=== PATIENT | female | born 1935 | race Hispanic/Latino ===

== ENCOUNTER 2017-05-14 11:52 | Inpatient (IN) | payer MEDICARE, OTHER ==
--- NOTE | 2017-05-14 12:37 | ED PDOC ---
Arrival/HPI - General Chief Complaint: Trauma Time Seen by Provider: 05/14/17 12:15 Historian: Patient - History of Present Illness Narrative History of Present Illness (Text): 05/14/17 12:37 An 81 year old female, whose past medical history includes diabetes, glaucoma, arthritis and spinal stenosis, presents to the emergency department complaining of right sided pain s/p fall about three hours ago. Patient reports unaware how she fell, lives by herself. Denies any dizziness, denies tripping over something. Patient notes she was standing and fell on the tiles on her right side. Reports to taking Ibuprofen an hour ago. Patient denies any b/l knee pain , abdominal pain or any other complaints at this time. Time/Duration: 1-3 hours Symptom Onset: Sudden Symptom Course: Unchanged Activities at Onset: Rest Context: Home Past Medical History - Provider Review Nursing Documentation Reviewed: Yes - Infectious Disease Hx of Infectious Diseases: None - Tetanus Immunization Tetanus Immunization: Unknown - Reproductive Menopause: Yes - Past Medical History Past Medical History: No Previous - Cardiac Hx Cardiac Disorders: Yes Hx Hypertension: Yes - Pulmonary Hx Asthma: Yes - Neurological Hx Neurological Disorder: No - HEENT Hx HEENT Disorder: Yes Hx Cataracts: Yes (right eye, cataract sx on left) Hx Glaucoma: Yes - Renal Hx Renal Disorder: No - Endocrine/Metabolic Hx Diabetes Mellitus Type 2: Yes - Hematological/Oncological Hx Blood Disorders: No - Integumentary Hx Dermatological Disorder: No - Musculoskeletal/Rheumatological Hx Musculoskeletal Disorders: Yes Hx Back Pain: Yes Hx Falls: Yes Hx Unsteady Gait: Yes - Gastrointestinal Hx Gastrointestinal Disorders: No - Genitourinary/Gynecological Hx Genitourinary Disorders: No - Psychiatric Hx Psychophysiologic Disorder: No Hx Anxiety: No Hx Bipolar Disorder: No Hx Depression: No Hx Emotional Abuse: No Hx Hallucinations: No Hx Panic Disorder: No Hx Post Traumatic Stress Disorder: No Hx Psychosis: No Hx Physical Abuse: No Hx Schizophrenia: No Hx Sexual Abuse: No Hx Substance Use: No - Surgical History Hx Appendectomy: Yes Hx Cholecystectomy: Yes - Anesthesia Hx Anesthesia: Yes Hx Anesthesia Reactions: No Hx Malignant Hyperthermia: No - Suicidal Assessment Feels Threatened In Home Enviroment: No Family/Social History - Physician Review Nursing Documentation Reviewed: Yes Family/Social History: No Known Family HX Smoking Status: Never Smoked Hx Alcohol Use: No Hx Substance Use: No Hx Substance Use Treatment: No Allergies/Home Meds Allergies/Adverse Reactions: Allergies erythromycin base Allergy (Verified 05/14/17 12:08) ANAPHYLAXIS nitrofurantoin Allergy (Verified 05/14/17 12:08) ANAPHYLAXIS tetracycline Allergy (Verified 05/14/17 12:08) ANAPHYLAXIS Home Medications: Home Meds Medication Instructions Recorded Confirmed ALPRAZolam [Xanax] 0.25 mg PO BID 07/30/15 07/30/15 Aspirin [Aspirin Chewable] 81 mg PO DAILY 07/30/15 07/30/15 Atenolol [Tenormin] 50 mg PO DAILY 07/30/15 07/30/15 Bimatoprost [Lumigan] 1 drop OU DAILY 07/30/15 07/30/15 Brimonidine Tartrate/Timolol 1 drop OU DAILY 07/30/15 07/30/15 [Combigan Eye Drops] Cetirizine HCl [Wal-Zyr] 1 tab PO DAILY 07/30/15 07/30/15 Lactobacillus Acidophilus 1 cap PO TID 07/30/15 07/30/15 [Acidophilus] Multivit-Min/Iron/Folic/Lutein 1 tab PO DAILY 07/30/15 07/30/15 [Centrum Silver Women Tablet] Naproxen [Naprosyn] 1 tab PO TID 07/30/15 07/30/15 metFORMIN [glucOPHAGE] 1,000 mg PO BID 07/30/15 07/30/15 Review of Systems - Physician Review All systems were reviewed & negative as marked: Yes - Review of Systems Gastrointestinal: absent: Abdominal Pain Musculoskeletal: Other (right sided pain s/p fall, no b/l knee pain) Physical Exam Vital Signs Reviewed: Yes Vital Signs Temp Pulse Resp BP Pulse Ox 05/14/17 15:00 81 18 149/78 98 05/14/17 12:01 98.8 F 82 18 157/71 H 97 Temperature: Afebrile Blood Pressure: Hypertensive Pulse: Regular Respiratory Rate: Normal Appearance: Positive for: Well-Appearing, Non-Toxic, Comfortable Pain Distress: None Mental Status: Positive for: Alert and Oriented X 3 Finger Stick Blood Glucose: 198 - Systems Exam Head: Present: Atraumatic, Normocephalic Pupils: Present: PERRL Extroacular Muscles: Present: EOMI Conjunctiva: Present: Normal Mouth: Present: Moist Mucous Membranes Neck: Present: Normal Range of Motion Respiratory/Chest: Present: Clear to Auscultation, Good Air Exchange. No: Respiratory Distress, Accessory Muscle Use Cardiovascular: Present: Regular Rate and Rhythm, Normal S1, S2. No: Murmurs Abdomen: Present: Normal Bowel Sounds. No: Tenderness, Distention, Peritoneal Signs Back: Present: Normal Inspection Upper Extremity: Present: Tenderness (right sided costal tenderness). No: Cyanosis, Edema Lower Extremity: Present: Normal Inspection. No: Edema Neurological: Present: GCS=15, CN II-XII Intact, Speech Normal Skin: Present: Warm, Dry, Normal Color. No: Rashes Psychiatric: Present: Alert, Oriented x 3, Normal Insight, Normal Concentration Medical Decision Making ED Course and Treatment: 05/14/17 12:34 Impression: An 81 year old female with right sided pain s/p fall. Plan: -- CT head -- CT chest -- EKG -- chest xray -- labs -- Urinalysis -- Tylenol -- Reassess and disposition Prior Visits: Notes and results from previous visits were reviewed. Patient was last seen in the emergency department on 07/30/15 for evaluation of rash and syncopal episodes. Progress Notes: 05/14/17 12:51 EKG: Ordered, reviewed, and independently interpreted the EKG. Rate : 75 BPM Rhythm : NSR Interpretation : 1st degree AV block 05/14/17 14:17 CT HEAD WITHOUT CONTRAST Creator : Tahira Kennedy MD FINDINGS: HEMORRHAGE: No intracranial hemorrhage. BRAIN: No mass effect or edema. Moderate atrophy and moderate chronic microvascular white matter ischemic disease are again noted. VENTRICLES: Unremarkable. No hydrocephalus. CALVARIUM: Unremarkable. PARANASAL SINUSES: Unremarkable as visualized. No significant inflammatory changes. MASTOID AIR CELLS: Unremarkable as visualized. No inflammatory changes. IMPRESSION: No evidence of acute intracranial hemorrhage intracranial collection mass effect or midline shift. Moderate atrophy and moderate chronic microvascular white matter ischemic disease are again noted. Dilated ventricles out of proportion of mildly dilated sulci. Correlate clinically for normal pressure hydrocephalus. 05/14/17 14:34 CT Chest without contrast Creator : Tahira Kennedy MD IMPRESSION: Two nondisplaced fractures at the posterior aspect of the right 11th rib. Small right pleural effusion. Airspace opacity at the right lung base likely atelectasis. Mild cardiomegaly. 05/14/17 15:02 Chest xray- Creator : Kg Coyle MD IMPRESSION: No active disease. 05/14/17 15:02 Radiographs of the pelvis Creator : Kg Coyle MD IMPRESSION: Unremarkable radiographs of the pelvis. 05/14/17 22:15 pt orriginally reports pmd is "dr kimble". ltater states it was dr duff. updated dr diaz that pt is to be admitted to dr tobar service. - Lab Interpretations Lab Results: 05/14/17 13:20 05/14/17 13:20 Lab Results 05/14/17 13:20: Sodium 138, Potassium 5.0, Chloride 99, Carbon Dioxide 25, Anion Gap 20, BUN 22 H, Creatinine 0.8, Est GFR ( Amer) > 60, Est GFR ( Non-Af Amer) > 60, Random Glucose 172 H, Calcium 10.2, Magnesium 1.7, Total Bilirubin 0.4, AST 25, ALT 29, Alkaline Phosphatase 54, Lactate Dehydrogenase 405, Total Creatine Kinase 83, Troponin I < 0.01, Total Protein 7.6, Albumin 4.3 , Globulin 3.3, Albumin/Globulin Ratio 1.3 05/14/17 13:20: PT 12.0, INR 1.05, APTT 27.4 05/14/17 13:20: WBC 11.2 H, RBC 4.65, Hgb 13.2, Hct 40.4, MCV 86.9, MCH 28.4, MCHC 32.7, RDW 14.6 H, Plt Count 208, MPV 10.9, Gran % 82.7 H, Lymph % (Auto) 10.7 L, [place] % (Auto) 5.9, Eos % (Auto) 0.6 L, Baso % (Auto) 0.1, Gran # 9.25 H , Lymph # (Auto) 1.2, [place] # (Auto) 0.7 H, Eos # (Auto) 0.1, Baso # (Auto) 0.01 I have reviewed the lab results: Yes - RAD Interpretation Radiology Orders: 05/14/17 12:20 CHEST W/O CONTRAST [CT] Stat HEAD W/O CONTRAST [CT] Stat CHEST PORTABLE [RAD] Stat 05/14/17 12:21 PELVIS ONE VIEW [RAD] Stat - EKG Interpretation Interpreted by ED Physician: Yes Type: 12 lead EKG - Medication Orders Current Medication Orders: Alprazolam (Xanax) 0.25 mg PO BID ANDREAS PRN Reason: Protocol Stop: 05/21/17 18:01 Last Admin: 05/14/17 18:23 Dose: 0.25 mg Behavioural Document 05/14/17 18:23 JFR (Rec: 05/14/17 18:23 R [facility] [id number]) Maintenance Maintenance Dose Yes Re-Assess: Reassess Psych Meds Document 05/14/17 19:23 FDE (Rec: 05/14/17 19:55 FDE [id number]) Reassess Psych Med Effective Aspirin (Aspirin Chewable) 81 mg PO DAILY ANDREAS Atenolol (Tenormin) 50 mg PO DAILY ANDREAS Sodium Chloride (Sodium Chloride 0.45%) 1,000 mls @ 40 mls/hr IV .Q24H [facility] Last Admin: 05/14/17 18:22 Dose: 40 mls/hr eMAR Start Stop Document 05/14/17 18:22 JFR (Rec: 05/14/17 18:22 [id number]) Intravenous Solution Start Date 05/14/17 Start Time 18:22 Insulin Human Regular (Humulin R Med) 0 units SC ACHS [facility] PRN Reason: Protocol Last Admin: 05/14/17 21:30 Dose: Not Given Non-Admin Reason: Blood Sugar Parameter [facility] Blood Glucose Document 05/14/17 21:30 E (Rec: 05/14/17 21:30 FDE [facility] [place] Blood Glucose Finger Stick Blood Glucose (70-120) 83 Ketorolac Tromethamine (Toradol) 15 mg IVP Q6H PRN PRN Reason: PAIN MODERATE Last Admin: 05/14/17 18:22 Dose: 15 mg MAR Pain Assessment Document 05/14/17 18:22 R (Rec: 05/14/17 18:22 [id number]) Pain Reassessment Is this a pain reassessment? No Pain Scale Used Pain Scale Used Numeric Location Left, Right or Bilateral Right Pain Location Body Site Generalized Description Intensity of Pain at present 8 IVP Administration Document 05/14/17 18:22 JFR (Rec: 05/14/17 18:22 [id number]) Charges for Administration # of IVP Administrations 1 Re-Assess: [facility] Pain Assessment Document 05/14/17 19:22 E (Rec: 05/14/17 19:39 [id number] Pain Reassessment Is this a pain reassessment? Yes Sleep Is patient sleeping during reassessment? No Presence of Pain Presence of Pain Yes Latanoprost (Xalatan Opht) 0 ml OU HS [facility] Last Admin: 05/14/17 21:19 Dose: 2.5 ml Metformin HCl (Glucophage) 1,000 mg PO BID [facility] Last Admin: 05/14/17 18:23 Dose: 1,000 mg Naproxen (Anaprox) 275 mg PO BID [facility] Last Admin: 05/14/17 18:23 Dose: 275 mg [facility] Pain Assessment Document 05/14/17 18:23 JFR (Rec: 05/14/17 18:23 R [facility] [id number]) Pain Reassessment Is this a pain reassessment? No Presence of Pain Presence of Pain Yes Pain Scale Used Pain Scale Used Numeric Location Left, Right or Bilateral Right Pain Location Body Site Generalized Description Intensity of Pain at present 8 Re-Assess: [facility] Pain Assessment Document 05/14/17 19:23 FDE (Rec: 05/14/17 19:39 FDE [id number]) Pain Reassessment Is this a pain reassessment? Yes Sleep Is patient sleeping during reassessment? No Presence of Pain Presence of Pain Yes Brimonidine Tartrate /Timolol [Combigan 0 .2%-0.5% Eye Drops] 1 drop OU DAILY [facility] Discontinued Medications Acetaminophen (Tylenol 325mg Tab) 975 mg PO STAT STA Stop: 05/14/17 12:22 Last Admin: 05/14/17 15:00 Dose: Not Given Non-Admin Reason: Patient Refused - Scribe Statement The provider has reviewed the documentation as recorded by the Morena Lion Provider Scribe Attestation: All medical record entries made by the Scribe were at my direction and personally dictated by me. I have reviewed the chart and agree that the record accurately reflects my personal performance of the history, physical exam, medical decision making, and the department course for this patient. I have also personally directed, reviewed, and agree with the discharge instructions and disposition. Disposition/Present on Arrival - Present on Arrival Any Indicators Present on Arrival: No History of DVT/PE: No History of Uncontrolled Diabetes: No Urinary Catheter: No History of Decub. Ulcer: No History Surgical Site Infection Following: None - Disposition Have Diagnosis and Disposition been Completed?: Yes Diagnosis: Rib fracture, Multiple falls Disposition: HOSPITALIZED Disposition Time: 01:00 Condition: STABLE
[2017-05-14 13:37] LABS: BASO # 0.01 K/mm3 (0.0-2.0); BASO % 0.1 % (0.0-3.0); EOS # 0.1 (0.0-0.7); EOS % 0.6 % (1.5-5.0); GRAN # 9.25 (1.4-6.5); GRAN % 82.7 % (50.0-68.0); HEMOGLOBIN 13.2 g/dL (12.0-16.0); LYMPH # 1.2 (1.2-3.4); LYMPH % 10.7 % (22.0-35.0); MEAN CELL VOLUME 86.9 fl (80.0-105.0); MEAN CORPUSCULAR HEMOGLOBIN 28.4 pg (25.0-35.0); MEAN CORPUSCULAR HGB CONC 32.7 g/dl (31.0-37.0); MEAN PLATELET VOLUME 10.9 fl (7.0-11.0); MONO # 0.7 (0.1-0.6); MONO % 5.9 % (1.0-6.0); RBC 4.65 10^6/uL (3.5-6.1); RED CELL DISTRIBUTION WIDTH 14.6 % (11.5-14.5); WHITE BLOOD COUNT 11.2 10^3/ul (4.5-11.0)
[2017-05-14 13:46] LABS: ALB/GLOB RATIO 1.3 (1.1-1.8); ALBUMIN 4.3 g/dL (3.0-4.8); ALT/SGPT 29 U/L (7-56); AST/SGOT 25 U/L (14-36); BLOOD UREA NITROGEN 22 mg/dL (7-21); CALCIUM 10.2 mg/dL (8.4-10.5); GFR AFRICAN-AMERICAN > 60; GFR NON-AFRICAN AMERICAN > 60; MAGNESIUM 1.7 mg/dL (1.7-2.2)
[2017-05-14 13:57] LABS: TROPONIN I < 0.01 ng/mL
[2017-05-14 13:59] LABS: INR 1.05 (0.93-1.08); PARTIAL THROMBOPLASTIN TIME 27.4 Seconds (25.1-36.5)
--- NOTE | 2017-05-14 14:16 | CT ---
PROCEDURE: CT HEAD WITHOUT CONTRAST. HISTORY: fall COMPARISON: Comparison is made with the previous study dated 07/30/2015 TECHNIQUE: Axial computed tomography images were obtained through the head/brain without intravenous contrast. Radiation dose: Total exam DLP = 977.56 mGy-cm. This CT exam was performed using one or more of the following dose reduction techniques: Automated exposure control, adjustment of the mA and/or kV according to patient size, and/or use of iterative reconstruction technique. FINDINGS: HEMORRHAGE: No intracranial hemorrhage. BRAIN: No mass effect or edema. Moderate atrophy and moderate chronic microvascular white matter ischemic disease are again noted. VENTRICLES: Unremarkable. No hydrocephalus. CALVARIUM: Unremarkable. PARANASAL SINUSES: Unremarkable as visualized. No significant inflammatory changes. MASTOID AIR CELLS: Unremarkable as visualized. No inflammatory changes. OTHER FINDINGS: None. IMPRESSION: No evidence of acute intracranial hemorrhage intracranial collection mass effect or midline shift. Moderate atrophy and moderate chronic microvascular white matter ischemic disease are again noted. Dilated ventricles out of proportion of mildly dilated sulci. Correlate clinically for normal pressure hydrocephalus.
--- NOTE | 2017-05-14 14:32 | CT ---
PROCEDURE: CT Chest without contrast HISTORY: fall right sided rib pain COMPARISON: None. TECHNIQUE: Contiguous axial images were obtained through the chest without intravenous contrast enhancement. Sagittal and coronal reconstructions were performed. Radiation dose (DLP): 249.31 mGy-cm. This CT exam was performed using one or more of the following dose reduction techniques: Automated exposure control, adjustment of the mA and/or kV according to patient size, and/or use of iterative reconstruction technique. FINDINGS: LUNGS: Small opacity at the right lung base likely atelectasis. MEDIASTINUM: Unremarkable thoracic aorta. No aneurysm. The heart is mildly enlarged. Main pulmonary artery unremarkable. No vascular congestion. No lymphadenopathy. PLEURA: There is small right pleural effusion. BONES: There are nondisplaced fracture at the posterior aspect of the right 11th rib. UPPER ABDOMEN: Grossly unremarkable. OTHER FINDINGS: None. IMPRESSION: Two nondisplaced fractures at the posterior aspect of the right 11th rib. Small right pleural effusion. Airspace opacity at the right lung base likely atelectasis. Mild cardiomegaly.
--- NOTE | 2017-05-14 14:59 | RAD ---
HISTORY: fall COMPARISON: 07/30/2015 FINDINGS: LUNGS: No active pulmonary disease. PLEURA: No significant pleural effusion identified, no pneumothorax apparent. CARDIOVASCULAR: Normal. OSSEOUS STRUCTURES: No significant abnormalities. VISUALIZED UPPER ABDOMEN: Normal. OTHER FINDINGS: None. IMPRESSION: No active disease.
--- NOTE | 2017-05-14 15:00 | RAD ---
PROCEDURE: Radiographs of the pelvis. HISTORY: fall COMPARISON: None. FINDINGS: BONES: Pelvic Bones: Unremarkable. Hips: Grossly unremarkable. JOINTS: Sacroiliac Joints: Unremarkable. Pubic Symphysis: Unremarkable. OTHER FINDINGS: None. IMPRESSION: Unremarkable radiographs of the pelvis.
--- NOTE | 2017-05-14 16:34 | CARD ---
APPROVED REPORT EKG Measurement Heart [id number] <Conclusion> Poor data quality, interpretation may be adversely affected Sinus rhythm with 1st degree AV block Low voltage QRS Inferior infarct, age undetermined Possible Anterolateral infarct, age undetermined Abnormal ECG
--- NOTE | 2017-05-14 18:00 | CON ---
DATE: 05/14/2017 NEUROLOGY CONSULTATION CHIEF COMPLAINT: Near syncope. HISTORY OF PRESENT ILLNESS: This is an 81-year-old woman with history of type 2 diabetes mellitus, uses a walker at baseline for gait, glaucoma, arthritis, spinal stenosis, who presented to the hospital because today when she was getting up from her bed, she did not feel lightheaded but had fallen, unaware of how she fell, resulted in some left rib fractures and currently has some mild pain. She is diabetic. She thinks it could have been that her blood sugar was on the lower side in the morning. She denies any lightheadedness or any spinning sensation of the room. No change in sense, vision, taste, or smell at this time from her baseline. CAT scan of the head showed no acute intracranial abnormalities. PAST MEDICAL HISTORY: As above in terms of diabetes, glaucoma, arthritis, chronic back pain, and spinal stenosis. FAMILY HISTORY: Noncontributory. SOCIAL HISTORY: No illicit drug use, smoking, or EtOH abuse. ALLERGIES: ERYTHROMYCIN, TETRACYCLINE. REVIEW OF SYSTEMS: Fourteen-point review of systems is negative except per the HPI. PHYSICAL EXAMINATION: VITAL SIGNS: Temperature of 98, pulse rate of 82, blood pressure 157/ , respiratory rate of 18, oxygen saturation 97% by room air. GENERAL:. Patient is sitting up in bed, in no acute distress. HEENT: Head is atraumatic, normocephalic. PERRLA. Extraocular muscles intact. NECK: Supple. No JVD, no adenopathy noted. LUNGS: Clear to auscultation. No adventitious sounds. HEART: S1 and S2. Normal rate and rhythm. No murmurs, rubs, or gallops. ABDOMEN: Soft, nontender, nondistended. Bowel sounds are present. EXTREMITIES: No clubbing, no cyanosis. Peripheral pulses 2+ felt bilaterally. NEUROLOGIC: Patient is alert and oriented to person, place, month, and year. Speech is fluent without any errors. Cranial nerves II through XII intact. Motor: Slightly increased tone throughout. Moves all extremities equally. No pronator drift seen. Sensory: Decreased light touch and pinprick up to the calves bilaterally. Decreased vibration of the toes. DTRs are 2+ throughout and absent at both knees and ankles. Coordination: [id number] intact. No tremor seen. Gait is deferred for now. LABORATORY DATA: Sodium is 138, potassium 5, chloride of 99, carbon dioxide of 25, BUN of 22, creatinine of . ASSESSMENT AND PLAN: This is an 81-year-old woman with history of type 2 diabetes mellitus, chronic back pain, spinal stenosis, glaucoma, who had a near syncope and a fall out of bed resulted in some fractures on the eleventh rib, currently in some mild pain, but no breathing, but otherwise no focal weakness or neurological deficits. At this time, her near syncope could be due to possibly transient hypoglycemia versus deconditioned state and falling out of bed. At this time, I would recommend: 1. Carotid Doppler. 2. Monitor blood sugars and correct accordingly. Keep blood sugars between 140 to 180. 3. Holter monitoring. 4. Continue with naproxen for pain management as needed and continue current present medical management. Thank you for this consult. Aristides Colilns MD
[2017-05-14] MEDS: Sodium Chloride 0.45% 1,000 ML IV SCH (18:22)
[2017-05-14] MEDS: Naproxen 275 mg Tab PO SCH (18:23)
--- NOTE | 2017-05-14 18:40 | US ---
PROCEDURE: Bilateral carotid artery duplex ultrasound HISTORY: Carotid stenosis PHYSICIAN(S): Duarte Cornejo MD. TECHNIQUE: Duplex sonography and color-flow Doppler were used to evaluate the carotid bifurcations and limited segments of the vertebral arteries bilaterally. FINDINGS: There is moderate smooth heterogeneous plaque noted at the carotid bifurcations bilaterally, greater on the left than the right. The peak systolic velocity in the proximal right internal carotid artery is 78 cm/sec. This corresponds to a 20 to 39% proximal right ICA stenosis. Normal systolic velocities are noted in the proximal right external carotid artery. There is antegrade flow in the right vertebral artery. The origin the left ICA is somewhat obscured by shadowing plaque. The peak systolic velocity in the proximal left internal carotid artery is 205 cm/sec. This corresponds to a 60-79 percent proximal left ICA stenosis. Normal systolic velocities are noted in the proximal left external carotid artery. The left vertebral artery was not adequately visualized. IMPRESSION: 1. 60-79 percent proximal left ICA stenosis 2. 20-39 percent proximal right ICA stenosis 3. Grade flow in the right vertebral artery. Left vertebral artery was not visualized
[2017-05-14] MEDS: Latanoprost 2.5 ml Opht Soln OU SCH (21:19)
[2017-05-14] MEDS: Insulin Reg-MEDIUM-Coverage SC SCH (21:30)
[2017-05-14 23:36] VITALS: BMI 26.6
[2017-05-14] MEDS ORDERED: Influenza Vaccine 60 mcg/0.5 mL SYR (4YR UP) IM ONE (23:37)
[2017-05-14] MEDS ORDERED: Pneumococcal 23-Valent Vaccine IM ONE (23:37)
[2017-05-15 07:12] LABS: HEMOGLOBIN 11.9 g/dL (12.0-16.0); MEAN CELL VOLUME 86.6 fl (80.0-105.0); MEAN CORPUSCULAR HEMOGLOBIN 27.5 pg (25.0-35.0); MEAN CORPUSCULAR HGB CONC 31.7 g/dl (31.0-37.0); MEAN PLATELET VOLUME 10.8 fl (7.0-11.0); RBC 4.33 10^6/uL (3.5-6.1); RED CELL DISTRIBUTION WIDTH 14.7 % (11.5-14.5); WHITE BLOOD COUNT 9.5 10^3/ul (4.5-11.0)
[2017-05-15 07:50] LABS: ALB/GLOB RATIO 1.2 (1.1-1.8); ALBUMIN 3.9 g/dL (3.0-4.8); ALT/SGPT 28 U/L (7-56); AST/SGOT 24 U/L (14-36); BLOOD UREA NITROGEN 23 mg/dL (7-21); CALCIUM 9.5 mg/dL (8.4-10.5); GFR AFRICAN-AMERICAN > 60; GFR NON-AFRICAN AMERICAN 60
--- NOTE | 2017-05-15 08:04 | HP ---
HISTORY OF PRESENT ILLNESS: I spoken to Karla this morning. She has told me she has fallen. I referred her to the Emergency Room today at [facility]. We have called the ambulance. I have been doing house calls on her for over a year now because it was very hard for her to get out of the house. It turns out that she has 2 fractures of the ribs and she was syncopal and dizzy. She is in a lot of pain. She is an 81-year-old female with a history of diabetes, glaucoma, arthritis, spinal stenosis, walks with a rollator at home, barely can walk 3 or 4 steps without having to stop. She has fallen at home prior 3 hours and she fell on her right side. She felt like she possibly could have lost consciousness, she tipped over, she felt it was her walker, the rollator, which she was using or tiles, and she is in pain on her right side, screaming on the phone to me. PAST MEDICAL HISTORY: Hypertension, asthma, right eye cataract, glaucoma, diabetes, back pain, falls, gait dysfunction besides physical therapy at the house, PAST SURGICAL HISTORY: Appendectomy, cholecystectomy. FAMILY HISTORY: No known family history. SOCIAL HISTORY: No smoker. No drinker. No drugs. ALLERGIES: SHE IS ALLERGIC TO ERYTHROMYCIN, NITROFURANTOIN, AND TETRACYCLINE. MEDICATIONS: She takes Xanax, aspirin, atenolol, Lumigan, timolol, Lovir, acidophilus, multivitamin, Naprosyn, and Glucophage. REVIEW OF SYSTEMS: No headache, no acute vision or hearing changes. No sore throat. No neck pain. No chest pain. No shortness of breath. No palpitations. No coughing. She has right-sided rib pain which seems severe. No abdominal pain. No nausea, vomiting, constipation or diarrhea. Her legs and the knees have arthritis pain, but nothing else. She could move all extremities. PHYSICAL EXAMINATION: GENERAL: She is well appearing at this time. Resting comfortably in bed. She has been medicated. VITAL SIGNS: She has 98.8 temperature, 82 pulse, 18 respiratory rate, 157/71 blood pressure, 97% O2 sat on room air. HEENT: Head is atraumatic, normocephalic. Extraocular muscles are intact. NECK: Supple. Thyroid midline. No palpable lymphadenopathy. HEART: Regular rate. Normal S1, S2. LUNGS: Decreased breath sounds, but clear to auscultation. No wheezes, no rhonchi, no rales. ABDOMEN: Soft, nontender, positive bowel sounds. No guarding. No rebound. No CVA tenderness. CHEST: The right side of the ribs are very tender with costal tenderness. NEUROLOGIC: GCS is 15. Cranial nerves II through XII grossly intact. Alert and oriented x3. SKIN: Warm and dry. LABORATORY DATA: She had a CAT scan of the head which is okay. CT of the chest showed right-sided fractured ribs. Chest x-ray was clear. She had a first degree AV block on the EKG with normal sinus rhythm. She has 2 nondisplaced fractures at the posterior aspect of the right 11th rib. Small pleural effusion or air space opacity at the right lung base. We will get Pulmonary to take a look at that, and Neurology to look at her syncope and her fall. She has 11.2 white count, 13.2 hemoglobin, 40.4 hematocrit, with a 208 platelets. Sodium 138, potassium is 5, BUN is 22, creatinine is 0.8. GFR is greater than 60. Random sugar is 172. Magnesium 1.7, calcium is 10.2, total bili is 0.4, AST is 25, ALT is 29, alk phos is 74. Lactate dehydrogenase is 405. Total creatinine kinase is 83, troponin I is less than 0.01, total protein 7.6, albumin is 4.3, INR is 1.05. IMPRESSION AND PLAN: I am going to call in Neurology and Pulmonology. She will need to have physical therapy. She might need subacute rehab. She will be on IV fluids, inulin coverage, and Toradol for pain. She is here for fall with fracture of 11th rib on the right, syncope. We will continue with aggressive treatment and care for Karla. She might need subacute rehab. We will see what Physical Therapy has to say. Paresh Franco DO
[2017-05-15] MEDS: Insulin Reg-MEDIUM-Coverage SC SCH ×4 (08:58→21:50)
[2017-05-15] MEDS: Naproxen 275 mg Tab PO SCH ×2 (09:43→17:03)
[2017-05-15] MEDS ORDERED: Non Formulary Medication (Bimatoprost [Lumigan] 1 DROP) OU SCH (10:00)
--- NOTE | 2017-05-15 10:48 | PN ---
DATE: SUBJECTIVE: I saw Karla resting in bed in the setting of lots of right-sided pain from the fractured ribs. She is on pain meds, which helps. She is going to have to go to subacute rehab or TCU. She is very uncomfortable and is scared to walk. She is on IV fluids, Anaprox, aspirin, Combigan, metformin, insulin coverage, Tenormin, Toradol, Tylenol, Xalatan and Xanax. PHYSICAL EXAMINATION: VITAL SIGNS: 98 temp, 76 pulse, 126/56 blood pressure, 20 respiratory rate, 96% O2 sat on room air. HEENT: Head is atraumatic, normocephalic. Throat is moist. NECK: Supple. HEART: Regular rate. LUNGS: Decreased breath sounds, but clear. Right-sided ribs are very tender. Only when she is comfortable, she is lying completely flat, not moving. ABDOMEN: Soft. EXTREMITIES: No edema. LABORATORY DATA: She has a 9.5 white count, better; 11.9 hemoglobin; 37.5 hematocrit with 195 platelets. She has a 139 sodium, potassium 3.8, BUN is 23, creatinine 0.9, GFR is greater than 60, sugar is 122, calcium is 9.5, total bili is 0.5, AST is 24, ALT is 28, alk phos 57, total protein is 7. ASSESSMENT AND PLAN: She is being seen by Neurology. She had carotid Doppler showing 60-79% internal carotid artery and 20-39% internal carotid artery stenosis. She is being seen by Dr. Collins. We will follow up with him with his evaluation of her and physical therapy, pain meds, out of bed to chair, bedside commode and hopefully she will continue to heal these fractured ribs from a fall and I do believe she gets subacute rehab or Transitional Care Unit before she would go home, probably to subacute rehab. We will check her labs tomorrow. Encouraged her to eat and take her medicines. We will get a bedside commode to make it easier for her. Paresh Franco DO
--- NOTE | 2017-05-15 15:16 | CON ---
DATE: 05/15/2017 PULMONARY CONSULTATION REFERRING PHYSICIAN: Dr. Paresh Franco. REASON FOR CONSULTANTION: Right basilar atelectasis. History is obtained via extensive discussion with the night nurse. I have also spoken with the patient at length, and reviewed the chart at length. The patient is an 81-year-old female, with past medical history significant for diabetes mellitus, questionable chronic obstructive pulmonary disease (positive former smoker for many years), glaucoma, arthritis, spinal stenosis, who presents to [facility] with increasing right-sided rib pain, status post fall at home. I did discuss the case with the patient at length. The patient is unaware of how she fell, but denies passing out. She also denies dizziness or tripping over something. She was thus admitted for additional evaluation. The patient denies shortness of breath at rest or dyspnea on exertion. She does have a chronic minimal cough with occasional sputum production. As above, the patient does complain of right-sided rib pain. She has no chest pain. There is no history of coughing up of blood. The right side does get more painful with deep respirations or any movement. There is no history of temperatures, chills, or infectious exposure. There is no history of night sweats, weight loss, or appetite change prior to the above events. No history of leg or calf pains. No history of syncope or diaphoresis. No history of recent travel. REVIEW OF SYSTEMS: No history of nausea, vomiting, or diarrhea. No acute urinary symptoms. Rest of the review of systems is negative. ALLERGIES: ERYTHROMYCIN, NITROFURANTOIN, AND TETRACYCLINE. SOCIAL HISTORY: Positive for former tobacco usage for many years, no alcohol. FAMILY HISTORY: No inheritable diseases. HOME MEDICATIONS: Include Glucophage, Naprosyn, acidophilus, Lumigan, Tenormin, aspirin, and Xanax. PHYSICAL EXAMINATION: GENERAL: The patient appears comfortable at rest. She is not short of breath. VITAL SIGNS: Temperature is 98.0, pulse 76, respirations 18/20, blood pressure 126/56. Oxygen saturation on room air is 96%. HEENT: Normocephalic, atraumatic. No JVD. CARDIOVASCULAR: Systolic ejection murmur at the lower left sternal border. No S3 gallop. LUNGS: Decreased breath sounds at the bases. No rhonchi. No wheezing. EXTREMITIES: No clubbing, cyanosis, or edema. Calves are nontender to palpation. GI: Abdomen is soft, nontender, and nondistended. Bowel sounds are positive. SKIN: No acute rash. NEUROLOGIC: Limited at the present time. PERTINENT LABORATORY DATA: CAT scan of the chest was done yesterday and reviewed. There is a fracture at the posterior aspect of the right 11th rib. There is also a very small right pleural effusion and adjacent airspace opacity (most consistent with atelectasis). Complete metabolic profile: BUN 22. Glucose 172. Rest of the metabolic profile is within normal limits. CBC: White count 11.2, hemoglobin 13.2, hematocrit 40.4, and platelets of 208,000. IMPRESSION: 1. Status post fall at home. 2. Fracture - right 11th rib. 3. Minimal atelectasis - right base. 4. Small right pleural effusion. 5. Probable chronic obstructive pulmonary disease. PLAN: Again, I did discuss the case with the night nurse at length. I have also discussed the case with the patient at length, and reviewed the chart at length. The patient presents to [facility] after falling at home. Again, she does not remember the events surrounding the fall, but denies passing out or dizziness. She was thus admitted for additional evaluation. I did review the CAT scan of the chest. As above, there is a fracture of the posterior aspect of the right 11th rib. There is also a very small right pleural effusion, and minimal airspace disease at the right base - most likely representing atelectasis. At this point in time, there is no bronchospasm on physical exam. In addition, the oxygen saturation on room air is 96%. I will start the patient on incentive spirometer and hopefully have her out of bed this morning. I would continue with the neurologic evaluation and workup. Input by Dr. Collins is noted. The patient does state to feeling better and is clinically improved this morning. Additional pulmonary intervention would based on the clinical status of the patient. I will discuss the above with Dr. Franco later this morning. Thank you very much for this pulmonary consultation. Juan Luis Carr MD [facility] # [id number] MTDD
--- NOTE | 2017-05-15 15:54 | CP.PCM.PN ---
Subjective - Date & Time of Evaluation Date of Evaluation: 05/15/17 Time of Evaluation: 15:00 - Subjective Subjective: DATE: 05/15/2017 NEUROLOGY FOLLOW UP. CHIEF COMPLAINT: Near syncope. SUBJECTIVE: She is in mild pain, but is not dizzy. She would benefit from TARAS. PAST MEDICAL HISTORY: As above in terms of diabetes, glaucoma, arthritis, chronic back pain, and spinal stenosis. FAMILY HISTORY: Noncontributory. SOCIAL HISTORY: No illicit drug use, smoking, or EtOH abuse. ALLERGIES: ERYTHROMYCIN, TETRACYCLINE. REVIEW OF SYSTEMS: Fourteen-point review of systems is negative except per the HPI. PHYSICAL EXAMINATION: VITAL SIGNS: Reviewed. GENERAL:. Patient is sitting up in bed, in no acute distress. HEENT: Head is atraumatic, normocephalic. PERRLA. Extraocular muscles intact. NECK: Supple. No JVD, no adenopathy noted. LUNGS: Clear to auscultation. No adventitious sounds. HEART: S1 and S2. Normal rate and rhythm. No murmurs, rubs, or gallops. ABDOMEN: Soft, nontender, nondistended. Bowel sounds are present. EXTREMITIES: No clubbing, no cyanosis. Peripheral pulses 2+ felt bilaterally. NEUROLOGIC: Patient is alert and oriented to person, place, month, and year. Speech is fluent without any errors. Cranial nerves II through XII intact. Motor: Slightly increased tone throughout. Moves all extremities equally. No pronator drift seen. Sensory: Decreased light touch and pinprick up to the calves bilaterally. Decreased vibration of the toes. DTRs are 2+ throughout and absent at both knees and ankles. Coordination: Tuxmuw-sq-sajd intact. No tremor seen. Gait is deferred for now. LABORATORY DATA: Reviewed. ASSESSMENT AND PLAN: This is an 81-year-old woman with history of type 2 diabetes mellitus, chronic back pain, spinal stenosis, glaucoma, who had a near syncope and a fall out of bed resulted in some fractures on the eleventh rib, currently in some mild pain, but no difficulty in breathing and otherwise no focal weakness or neurological deficits. At this time, her near syncope could be due to possibly transient hypoglycemia versus deconditioned state and falling out of bed. Carotid Doppler showed left ICA stenosis of 60-79% and 20-39% on the right. At this time, I would recommend: 1. ASA 81 mg and fish oil since can not tolerate statins for carotid disease. 2. Monitor blood sugars and correct accordingly. Keep blood sugars between 140 to 180. 3. Continue with naproxen for pain management as needed 4. TARAS/ PT/OT Thank you Aristides Collins MD Objective - Vital Signs/Intake and Output Vital Signs (last 24 hours): Temp Pulse Resp BP Pulse Ox 98.6 F 71 18 128/66 96 05/15/17 12:00 05/15/17 14:00 05/15/17 12:00 05/15/17 12:00 05/15/17 05:58 Intake and Output: 05/15/17 05/15/17 06:59 18:59 Intake Total 1140 240 Balance 1140 240 - Medications Medications: Current Medications Alprazolam (Xanax) 0.25 mg PO BID [facility] PRN Reason: Protocol Stop: 05/21/17 18:01 Last Admin: 05/15/17 09:42 Dose: 0.25 mg Aspirin (Aspirin Chewable) 81 mg PO DAILY [facility] Last Admin: 05/15/17 09:44 Dose: 81 mg Atenolol (Tenormin) 50 mg PO DAILY [facility] Last Admin: 05/15/17 09:43 Dose: 50 mg Sodium Chloride (Sodium Chloride 0.45%) 1,000 mls @ 40 mls/hr IV .Q24H [facility] Last Admin: 05/14/17 18:22 Dose: 40 mls/hr Insulin Human Regular (Humulin R Med) 0 units SC ACHS [facility] PRN Reason: Protocol Last Admin: 05/15/17 08:58 Dose: Not Given Ketorolac Tromethamine (Toradol) 15 mg IVP Q6H PRN PRN Reason: PAIN MODERATE Last Admin: 05/15/17 04:03 Dose: 15 mg Latanoprost (Xalatan Opht) 0 ml OU HS [facility] Last Admin: 05/14/17 21:19 Dose: 2.5 ml Metformin HCl (Glucophage) 1,000 mg PO BID [facility] Last Admin: 05/15/17 09:44 Dose: 1,000 mg Naproxen (Anaprox) 275 mg PO BID [facility] Last Admin: 05/15/17 09:43 Dose: 275 mg Brimonidine Tartrate /Timolol [Combigan 0 .2%-0.5% Eye Drops] 1 drop OU DAILY [facility] Last Admin: 05/15/17 09:46 Dose: Not Given - Labs Labs: 05/15/17 06:45 05/15/17 07:00 PT 12.0 SECONDS (9.4-12.5) 05/14/17 13:20 INR 1.05 (0.93-1.08) 05/14/17 13:20 APTT 27.4 Seconds (25.1-36.5) 05/14/17 13:20
[2017-05-15] MEDS: Sodium Chloride 0.45% 1,000 ML IV SCH (18:39)
[2017-05-15] MEDS: Latanoprost 2.5 ml Opht Soln OU SCH (21:14)
[2017-05-16 07:15] LABS: MEAN CELL VOLUME 86.2 fl (80.0-105.0); MEAN CORPUSCULAR HEMOGLOBIN 28.2 pg (25.0-35.0); MEAN CORPUSCULAR HGB CONC 32.7 g/dl (31.0-37.0); MEAN PLATELET VOLUME 10.5 fl (7.0-11.0); RBC 4.26 10^6/uL (3.5-6.1); RED CELL DISTRIBUTION WIDTH 14.6 % (11.5-14.5); WHITE BLOOD COUNT 8.2 10^3/ul (4.5-11.0)
[2017-05-16 07:16] LABS: ALB/GLOB RATIO 1.2 (1.1-1.8); ALBUMIN 3.4 g/dL (3.0-4.8); ALT/SGPT 28 U/L (7-56); AST/SGOT 23 U/L (14-36); BLOOD UREA NITROGEN 22 mg/dL (7-21); CALCIUM 9.2 mg/dL (8.4-10.5); GFR AFRICAN-AMERICAN > 60; GFR NON-AFRICAN AMERICAN 60
--- NOTE | 2017-05-16 08:24 | PN ---
DATE: 05/16/2017 PULMONARY NOTE SUBJECTIVE: The patient appears comfortable this morning. She is not short of breath at rest. PHYSICAL EXAMINATION VITAL SIGNS: Temperature is 97.9, pulse is 78, respirations 18, blood pressure 107/50. Oxygen saturation on nasal cannula is 96%. HEENT: Normocephalic, atraumatic. No JVD. CARDIOVASCULAR: Systolic ejection murmur at the lower left sternal border. No S3 gallop. LUNGS: Decreased breath sounds at the bases. No rhonchi. No wheezing. EXTREMITIES: No clubbing, cyanosis or edema. Calves are nontender to palpation. GI: Abdomen is soft, nontender and nondistended. Bowel sounds are positive. SKIN: No acute rash. NEUROLOGIC: Limited at the present time. IMPRESSION: 1. Status post fall at home. 2. Fracture, right 11th rib. 3. Minimal atelectasis - right base. 4. Small right pleural effusion. 5. Probable chronic obstructive pulmonary disease. PLAN: The patient appears comfortable this morning. She is not short of breath at rest. She does state to feeling better overall. On physical exam, breath sounds are still diminished at the bases. The patient is re-instructed to use her incentive spirometer as much as possible, as well as be out of bed as much as possible. There is no significant alveolar-arterial gradient. The patient certainly appears clinically improved this morning. Repeat a.m. labs are pending. A Transitional Unit evaluation has been ordered. I feel that this is certainly appropriate for this patient at this point in time. I will discuss the above with Dr. Franco. Juan Luis Carr MD MTDNickolas
[2017-05-16] MEDS: Insulin Reg-MEDIUM-Coverage SC SCH ×4 (08:35→22:02)
[2017-05-16] MEDS: Naproxen 275 mg Tab PO SCH ×2 (10:54→18:14)
--- NOTE | 2017-05-16 13:28 | PN ---
DATE: SUBJECTIVE: I saw Karla resting comfortably in bed. When she moves, she has severe rib pain from the fractured ribs. She is trying to do well. She is going to get out of bed to chair and physical therapy everyday. She is on IV fluids, Naprosyn, aspirin, Combigan, Glucophage, insulin coverage, Tenormin, Toradol, Xalatan and Xanax. PHYSICAL EXAMINATION VITAL SIGNS: Temperature 97.9, pulse 78, blood pressure 107/50, respiratory rate 18, 96% O2 saturation on nasal cannula. HEENT: Head is atraumatic, normocephalic. HEART: Regular rate. LUNGS: Decreased breath sounds bilaterally. She has used the incentive spirometry every hour. She has right rib pain. ABDOMEN: Soft. EXTREMITIES: No edema. LABORATORY DATA: She has a 8.2 white count, 12 hemoglobin, 36.7 hematocrit with 183,000 platelets. She has 136 sodium, potassium of 4, BUN 22, creatinine 0.9, GFR is greater than 60. Sugar is 173, calcium is 9.2, total bilirubin is 0.4. AST is 23, ALT is 28, alkaline phosphatase 69, total protein 6.3. ASSESSMENT AND PLAN: Physical Therapy saw her and wanted her to have TCU. She is being seen by Neurology and Pulmonary. She is on aspirin. They recommended TARAS, nothing recommended about the Carotid Doppler by Neurology, Pain Management and also was seen by the blow mold operator, he thought this is more COPD. We will follow. We will check her labs tomorrow. I am hoping she can go to TCU or possibly TARAS tomorrow, overnight. I will discuss that with [employer]. She is here for fall, weakness, fractured ribs on the right #11. She needs physical therapy for before she goes home. Paresh Franco DO JORJE
[2017-05-16] MEDS: Latanoprost 2.5 ml Opht Soln OU SCH (22:01)
[2017-05-16] MEDS: Sodium Chloride 0.45% 1,000 ML IV SCH (22:02)
--- NOTE | 2017-05-16 22:44 | CP.PCM.PN ---
Subjective - Date & Time of Evaluation Date of Evaluation: 05/16/17 Time of Evaluation: 22:43 - Subjective Subjective: draft vss syncope, dizziness. At home takes citrazine for itching. C/O itchinng. Rx,Benadryl 25 mg PO x 1. Seen. States that benadryl doed not help for itching, singular does it. Buys it OTC. Objective - Vital Signs/Intake and Output Vital Signs (last 24 hours): Temp Pulse Resp BP Pulse Ox 97 F L 70 16 145/71 96 05/16/17 18:00 05/16/17 18:00 05/16/17 18:00 05/16/17 18:00 05/16/17 18:00 Intake and Output: 05/16/17 05/17/17 18:59 06:59 Intake Total 840 780 Output Total 1650 700 Balance -810 80 - Medications Medications: Current Medications Alprazolam (Xanax) 0.25 mg PO BID [facility] PRN Reason: Protocol Stop: 05/21/17 18:01 Last Admin: 05/16/17 18:11 Dose: Not Given Aspirin (Aspirin Chewable) 81 mg PO DAILY [facility] Last Admin: 05/16/17 10:49 Dose: 81 mg Atenolol (Tenormin) 50 mg PO DAILY [facility] Last Admin: 05/16/17 10:49 Dose: 50 mg Diphenhydramine HCl (Benadryl) 25 mg PO STAT [facility] Stop: 05/16/17 22:43 Sodium Chloride (Sodium Chloride 0.45%) 1,000 mls @ 40 mls/hr IV .Q24H [facility] Last Admin: 05/16/17 22:02 Dose: 40 mls/hr Insulin Human Regular (Humulin R Med) 0 units SC ACHS [facility] PRN Reason: Protocol Last Admin: 05/16/17 22:02 Dose: Not Given Ketorolac Tromethamine (Toradol) 15 mg IVP Q6H PRN PRN Reason: PAIN MODERATE Last Admin: 05/15/17 16:52 Dose: 15 mg Latanoprost (Xalatan Opht) 0 ml OU HS [facility] Last Admin: 05/16/17 22:01 Dose: 2.5 ml Metformin HCl (Glucophage) 1,000 mg PO BID [facility] Last Admin: 05/16/17 18:15 Dose: 1,000 mg Naproxen (Anaprox) 275 mg PO BID [facility] Last Admin: 05/16/17 18:14 Dose: 275 mg Brimonidine Tartrate /Timolol [Combigan 0 .2%-0.5% Eye Drops] 1 drop OU DAILY [facility] Last Admin: 05/16/17 10:51 Dose: Not Given - Labs Labs: 05/16/17 06:50 05/16/17 06:50 PT 12.0 SECONDS (9.4-12.5) 05/14/17 13:20 INR 1.05 (0.93-1.08) 05/14/17 13:20 APTT 27.4 Seconds (25.1-36.5) 05/14/17 13:20
[2017-05-17 07:10] LABS: HEMOGLOBIN 11.2 g/dL (12.0-16.0); MEAN CELL VOLUME 86.2 fl (80.0-105.0); MEAN CORPUSCULAR HEMOGLOBIN 27.2 pg (25.0-35.0); MEAN CORPUSCULAR HGB CONC 31.5 g/dl (31.0-37.0); MEAN PLATELET VOLUME 10.6 fl (7.0-11.0); RBC 4.12 10^6/uL (3.5-6.1); RED CELL DISTRIBUTION WIDTH 14.6 % (11.5-14.5); WHITE BLOOD COUNT 6.8 10^3/ul (4.5-11.0)
--- NOTE | 2017-05-17 07:16 | PN ---
DATE: PULMONARY NOTE SUBJECTIVE: The patient appears comfortable this morning. She is not short of breath at rest. OBJECTIVE VITAL SIGNS: Temperature is 97.4, pulse 63, respirations 18, blood pressure 129/68. Oxygen saturation on room air is 92%-96%. HEENT: Normocephalic, atraumatic. NECK: No JVD. CARDIOVASCULAR: Systolic ejection murmur at the lower left sternal border. No S3 gallop. LUNGS: Still with decreased breath sounds at the bases. No rhonchi. No wheezing. EXTREMITIES: No clubbing, cyanosis or edema. Calves are nontender to palpation. GASTROINTESTINAL: Abdomen is soft, nontender and nondistended. Bowel sounds are positive. SKIN: No acute rash. NEUROLOGIC: Exam limited at the present time. IMPRESSION 1. Status post fall at home. 2. Fracture, right 11th rib. 3. Minimal atelectasis - right base. 4. Small right pleural effusion. 5. Probable chronic obstructive pulmonary disease. PLAN: The patient appears comfortable this morning. She is not short of breath at rest. She does state to continued right rib pain. She also states to feeling better overall. On physical exam, there are still decreased breath sounds at the bases. However, there is no significant alveolar-arterial gradient. I will keep the patient on frequent incentive spirometry, and have the patient out of bed as much as possible. The patient is certainly clinically improved - compared to her initial hospital status. I would like to obtain pulmonary function test on her in the near future. Again, she does have a long history of smoking. Inputs by Neurology are noted. The patient is for a possible transfer to the Transitional Unit. I will discuss the above with Dr. Franco. Juan Luis Carr MD MTDNickolas
[2017-05-17 07:29] LABS: ALB/GLOB RATIO 1.1 (1.1-1.8); ALBUMIN 3.3 g/dL (3.0-4.8); ALT/SGPT 23 U/L (7-56); AST/SGOT 18 U/L (14-36); BLOOD UREA NITROGEN 22 mg/dL (7-21); CALCIUM 9.1 mg/dL (8.4-10.5); GFR AFRICAN-AMERICAN > 60; GFR NON-AFRICAN AMERICAN > 60
[2017-05-17] MEDS: Insulin Reg-MEDIUM-Coverage SC SCH ×2 (07:55→13:24)
[2017-05-17] MEDS: Naproxen 275 mg Tab PO SCH (10:58)
[2017-05-17 12:45] VITALS: BP 123/78; PULSE 71; RESP 16; TEMP 97.4; O2SAT 92
--- NOTE | 2017-05-18 07:19 | DS ---
SUBJECTIVE: She is resting uncomfortably today in bed. She has these fractured ribs on the right, very difficult for her to get up and get down. She is eating some. She is just miserable. She is scared about falling. PHYSICAL EXAMINATION: VITAL SIGNS: 97.5 temperature, 67 pulse, 115/63 blood pressure, 19 respiratory rate and 93% O2 sat on room air. HEAD: Atraumatic, normocephalic. HEART: Regular rate. LUNGS: Clear to auscultation with decreased breath sounds on my current review incentive spirometry. She has painful right rib 11, which is fractured. ABDOMEN: Soft. Poor appetite. EXTREMITIES: No edema. MEDICATIONS: She is on Combigan, Anaprox, aspirin, Glucophage, insulin coverage, IV fluids, Tenormin, Toradol, Xalatan, and Xanax. LABORATORY DATA: She has a 6.8 white count, 11.2 hemoglobin, 35.5 hematocrit, with 176 platelets. Sodium 137, potassium 4, BUN 22, creatinine 0.8, GFR is greater than 60, sugar is 120, calcium is 9.1, total bili is 0.5, AST is 18, ALT is 23, alk phos total protein 6.2. ASSESSMENT AND PLAN: I am hoping I could discharge her today to [facility] for 3 weeks of physical therapy and care. she had syncope, dizziness, fall, right 11th rib fracture. I am hoping we can get her to [facility] today; [place], [facility], and I will talk this over with case management. Paresh Franco DO MTDNickolas
== END 2017-05-17 15:56 | DRG 206 ==
LOC: ED 11:52 → ERH 15:05 → 3RSO 18:13
PROVIDERS: ADMIT Family Medicine; ATTEND Family Medicine
DX: S22.31XA Fracture of one rib, right side, initial encounter for closed fracture (principal); E11.649 Type 2 diabetes mellitus with hypoglycemia without coma; I11.9 Hypertensive heart disease without heart failure; W06.XXXA Fall from bed, initial encounter; Y92.009 Unspecified place in unspecified non-institutional (private) residence as the place of occurrence of the external cause; H40.9 Unspecified glaucoma; I51.7 Cardiomegaly; I65.22 Occlusion and stenosis of left carotid artery; J44.9 Chronic obstructive pulmonary disease, unspecified; R29.6 Repeated falls; Z79.82 Long term (current) use of aspirin; Z87.891 Personal history of nicotine dependence; Z90.49 Acquired absence of other specified parts of digestive tract; Z88.1 Allergy status to other antibiotic agents; Z88.8 Allergy status to other drugs, medicaments and biological substances; R40.2412 Glasgow coma scale score 13-15, at arrival to emergency department